=== PATIENT | female | born 1955 | race Caucasian/White ===

== ENCOUNTER → 2018-02-05 | Outpatient (CLI) | payer BC ==
[~2018-02-05] MED LIST: NICO2LOZ70 BC; SUMA25TA26 PO; TOPI25CA6; VENL75TA12 FT
--- NOTE | 2018-02-08 16:56 | RADIOLOGY IMAGING REPORT ---
FACILITY: [facility] PATIENT NAME: ZBIGNIEW CHNICHILLA : [id number] MR: [id number] V: [id number] EXAM DATE: ORDERING PHYSICIAN: ARA SILVA TECHNOLOGIST: Rosetta Vieira PROCEDURE:BILATERAL DIGITAL SCREENING MAMMOGRAM WITH CAD ASSISTED INTERPRETATION & 3D TOMOSYNTHESIS COMPARISON:Prior mammograms 05/07/16 back to 09/07/12. INDICATIONS:screening FINDINGS: The breast parenchyma consists of scattered fibroglandular tissue. There are no dominant masses or recent microcalcifications present. DIAGNOSTIC CATEGORY 1--NEGATIVE. RECOMMENDATIONS: ROUTINE MAMMOGRAM AND CLINICAL EVALUATION. IMPRESSION: BIRADS 1: Negative. Routine annual mammographic screening. Dictated by: Bishnu Arellano M.D. on 02/08/2018 at 10:18 Transcribed by: MILDRED on 02/08/2018 at 10:39 Approved by: Bishnu Arellano M.D. on 02/08/2018 at 16:55 [facility]
== END ==
LOC: MAMO 02:41
PROVIDERS: ATTEND Nurse Practitioner Family
DX: Z12.31 Encounter for screening mammogram for malignant neoplasm of breast (principal)
CPT/HCPCS: 77063; 77067

== ENCOUNTER → 2018-02-08 | Outpatient (CLI) | payer BC ==
--- NOTE | 2018-02-08 11:15 | RADIOLOGY IMAGING REPORT ---
FACILITY: [facility] [place] PATIENT NAME: Heidy Mckay : 1955 MR: [id number] V: [id number] EXAM DATE: ORDERING PHYSICIAN: ARA SILVA TECHNOLOGIST: Location: [facility] Patient: Heidy Mckay : 1955 Visit/Account:[id number] Date of Sevice: 02/08/2018 DEXA Scan Clinical history: Screening. Comparison: September 07, 2012. LUMBAR SPINE: The bone mineral density (BMD) measured from L1-L4 correlates with a Z-score of -0.7 and a T-score of -1.9 which is osteopenic as defined by the World Health Organization. The cor responding risk of fracture in the lumbar spine is moderately increased compared with a young adult r eference population. This value has decreased by 2.5 % since the prior study. More than 5% change i s considered significant. HIP: Bone mineral density (BMD) measured in the Left Total Hip region correlates with a Z-score of -0.8 an d a T-score of -1.8. The T-score of the femoral neck is -1.9. The lower of the two T-scores is osteopenic as defined by the World Health Organization. The corresponding risk of fracture in the hip is moderately increased compared with a young adult r eference population. This value has decreased by 8.6 % since the prior study. More than 5% change i s considered significant. Bone mineral density (BMD) measured in the Left Femoral Neck region measures 0.780 g/cm?. IMPRESSION: 1. Lumbar spine: Osteopenic. There has been no significant change in the bone mineral density sinc e the previous exam. 2. Left Total Hip: Osteopenic. There has been significant decrease in the bone mineral density sinc e the previous exam. The next DEXA scan of this patient should include the following sites: L1-L4 and Left hip. FRAX? WHO Fracture Risk Assessment Tool link: <http://www.shef.ac.uk/FRAX/tool.jsp?locationValue=9> PLEASE NOTE: 1) The World Health Organization defines low BMD as follows: T-score Normal > -1 Osteopenia < -1 and > -2.5 Osteoporosis < -2.5 without fractures Established osteoporosis < -2.5 with fractures 2) In general, you may wish to consider: Diagnosis Treatment Follow-up DEXA Normal BMD Prevention 2-3 years Osteopenia Prevention/therapy 1-2 years Osteoporosis Therapy Yearly 3) Fracture risk estimated from the T-score is more accurate for vertebral fractures (often spontane ous) than for hip fractures. Report Dictated By: Bishnu Arellano MD at 02/08/2018 11:10 AM Report E-Signed By: Bishnu Arellano MD at 02/08/2018 11:12 AM WSN:[email or web address]
== END ==
LOC: RAD 02:26
PROVIDERS: ATTEND Nurse Practitioner Family
DX: M85.88 Other specified disorders of bone density and structure, other site (principal)
CPT/HCPCS: 77080

== ENCOUNTER → 2018-05-04 | Outpatient (CLI) | payer BC ==
[~2018-05-04] MED LIST changes: +ASPI81TA94 PO
== END ==
LOC: LAB 08:46
PROVIDERS: ATTEND Otolaryngology
DX: H90.41 Sensorineural hearing loss, unilateral, right ear, with unrestricted hearing on the contralateral side (principal)
CPT/HCPCS: 36415; 82565

== ENCOUNTER → 2018-05-07 | Outpatient (CLI) | payer BC ==
[~2018-05-07] MED LIST changes: +GADOBENATE 529MG/1ML 15ML VIAL IVP ONE
--- NOTE | 2018-05-07 13:12 | RADIOLOGY IMAGING REPORT ---
[place] [facility] [place] NAME: Heidy Mckay : 1955 MR: [id number] V: [id number] EXAM DATE: ORDERING PHYSICIAN: CECILE SMITH TECHNOLOGIST: Location: [facility] Patient: Heidy Mckay : 1955 Visit/Account:[id number] Date of Sevice: 05/07/2018 Study: MRI of the brain without and with gadolinium contrast. Indication: Asymmetrical sensorineural hearing loss Comparison study: None Contrast used: 15 mL MultiHance gadolinium contrast Technique: Multiplanar MRI sequences were obtained through the brain before and after the administrat ion of gadolinium contrast. The examination demonstrates no evidence of acute intracranial hemorrhage. There is no evidence of ex tra-axial collection or hydrocephalus. There is no abnormal signal identified within the brain parenchyma. There is no evidence of cerebellopontine angle mass. The 7th and 8th cranial nerve bundles are markab le. There is no abnormal contrast present in these areas. The petrous apices are unremarkable bilaterally. The pituitary gland is unremarkable in appearance. There is no evidence of abnormality of the pineal gland. A diffusion-weighted sequence was performed and demonstrates no evidence of active ischemia. There is no evidence of active infarct The orbits are unremarkable. The paranasal sinuses are unremarkable Following the administration of gadolinium contrast, there is no abnormal intracranial contrast enhan cement. 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 This is essentially a normal variant. IMPRESSION: No significant abnormality identified. Specifically, there is no evidence of cerebellopon leonid angle mass. There is no evidence of abnormality of the 7th or 8th cranial nerve bundles. Report Dictated By: Arnoldo Hernandez at 05/07/2018 12:42 PM Report E-Signed By: Arnoldo Hernandez at 05/07/2018 12:45 PM WSN:[email or web address]
== END ==
LOC: MRI 07:01
PROVIDERS: ATTEND Otolaryngology
DX: H90.41 Sensorineural hearing loss, unilateral, right ear, with unrestricted hearing on the contralateral side (principal)
CPT/HCPCS: 70553; A9577